=== PATIENT | female | born 1940 | race African-American/Black ===

== ENCOUNTER 2016-08-01 20:06 | Inpatient (IN) | payer MEDICARE ==
[~2016-08-01] VITALS: Ht 152.4 cm; Wt 67.0 kg
[2016-08-01 20:00] VITALS: BP 146/89
[~2016-08-01 20:06] MED LIST: ALLO100T PO; AMLO10TA80 PO; ATEN50TA PO; BUDE6HFA IH; DILT60TA3 PO; DULO30CA2 PO; LORA2TAB2 PO
[2016-08-01] MEDS: IPRATROPIUM BROMIDE (0.02%) 0.5MG/2.5ML NEB HHN SCH (20:30)
[2016-08-01] MEDS ORDERED: DIPHENHYDRAMINE 50MG CAPSULE PO PRN (20:45)
[2016-08-01] MEDS ORDERED: LORAZEPAM 1MG TABLET PO PRN (20:45)
[2016-08-01] MEDS ORDERED: GUAIFENESIN 200MG/10ML SUGAR FREE UDC PO PRN (20:45)
[2016-08-01] MEDS ORDERED: CLONIDINE 0.1MG TABLET PO PRN (20:45)
[2016-08-01] MEDS: AMIODARONE HCL 200 MG TABLET PO SCH (22:58)
[2016-08-01] MEDS: SUCRALFATE 1 G/10 ML UDC PO SCH (22:59)
[2016-08-01] MEDS: DILTIAZEM HCL 60MG TABLET PO SCH (22:59)
[2016-08-01 23:00] VITALS: BP 154/76
[2016-08-01] MEDS ORDERED: POTASSIUM PHOS,M-BASIC-D-BASIC 10 MMOL in DEXT 5% WATER 246.6667 ML IV NR (23:00)
[2016-08-01] MEDS ORDERED: MAGNESIUM 1 G PREMIX 100 ML IV NR (23:00)
[2016-08-01] MEDS: EPOETIN ALFA 10000UNITS/ML VIAL SUBCUT SCH (23:00)
[2016-08-02] MEDS: LORAZEPAM 0.5MG TABLET PO PRN ×2 (00:27→23:01)
[2016-08-02] MEDS: IPRATROPIUM BROMIDE (0.02%) 0.5MG/2.5ML NEB HHN SCH ×7 (00:38→23:14)
[2016-08-02 03:30] VITALS: BP 132/95
[2016-08-02] MEDS: PANTOPRAZOLE 40MG DR TABLET PO SCH (06:46)
[2016-08-02] MEDS: SUCRALFATE 1 G/10 ML UDC PO SCH ×4 (06:46→21:44)
[2016-08-02] MEDS: DILTIAZEM HCL 60MG TABLET PO SCH ×3 (06:47→21:42)
[2016-08-02 07:36] LABS: ALANINE AMINOTRANSFERASE 22 IU/L (13-61); ALBUMIN 2.6 g/dL (3.4-5.0); ANION GAP 16; CALCIUM 9.2 mg/dL (8.5-10.1); CARBON DIOXIDE 25 mEq/L (21-32); CHLORIDE 101 mEq/L (98-107); INDEX HEMOLYSI 1 (1-3); INDEX ICTERIC 1 (1-4); INDEX LIPEMIC 1 (1-3); UREA NITROGEN BLOOD 58 mg/dL (7-21)
[2016-08-02 07:39] LABS: eGFR 9 mL/min (>60)
[2016-08-02 08:00] VITALS: BP 154/90
[2016-08-02] MEDS: FOLIC ACID/VITAMIN B COMP W-C TABLET PO SCH (09:09)
[2016-08-02] MEDS: CHOLECALCIFEROL (D3) 1000 UNIT TABLET PO SCH (09:09)
[2016-08-02] MEDS: ALLOPURINOL 100 MG TABLET PO SCH (09:10)
[2016-08-02] MEDS: AMIODARONE HCL 200 MG TABLET PO SCH ×2 (09:10→21:43)
[2016-08-02] MEDS: FLUCONAZOLE 200MG TABLET PO SCH (09:10)
[2016-08-02] MEDS: GUAIFENESIN-DM 200MG-20MG/10ML UDC PO PRN ×2 (09:52→15:42)
[2016-08-02] MEDS: ENOXAPARIN 30MG/0.3ML SYR SUBCUT SCH (11:39)
[2016-08-02] MEDS: ACETAMINOPHEN 325MG TABLET PO PRN (15:42)
[2016-08-02 20:00] VITALS: BP 121/79
[2016-08-03] MEDS: ACETAMINOPHEN 325MG TABLET PO PRN (02:57)
[2016-08-03] MEDS: IPRATROPIUM BROMIDE (0.02%) 0.5MG/2.5ML NEB HHN SCH ×4 (04:06→20:11)
[2016-08-03] MEDS: PANTOPRAZOLE 40MG DR TABLET PO SCH (06:31)
[2016-08-03] MEDS: SUCRALFATE 1 G/10 ML UDC PO SCH ×4 (06:32→21:37)
[2016-08-03] MEDS: DILTIAZEM HCL 60MG TABLET PO SCH ×2 (06:32→14:15)
[2016-08-03 08:00] VITALS: BP 141/89
[2016-08-03] MEDS: CHOLECALCIFEROL (D3) 1000 UNIT TABLET PO SCH (09:35)
[2016-08-03] MEDS: FOLIC ACID/VITAMIN B COMP W-C TABLET PO SCH (09:35)
[2016-08-03] MEDS: FLUCONAZOLE 200MG TABLET PO SCH (09:35)
[2016-08-03] MEDS: AMIODARONE HCL 200 MG TABLET PO SCH ×2 (09:35→21:56)
[2016-08-03] MEDS: ALLOPURINOL 100 MG TABLET PO SCH (09:35)
[2016-08-03] MEDS: ENOXAPARIN 30MG/0.3ML SYR SUBCUT SCH (12:03)
[2016-08-03 13:50] VITALS: BP 116/81
[2016-08-03 20:00] VITALS: BP 144/87
[2016-08-03] MEDS: EPOETIN ALFA 10000UNITS/ML VIAL SUBCUT SCH (21:37)
[2016-08-03 23:40] VITALS: BP 145/89
[2016-08-04] MEDS ORDERED: DILTIAZEM HCL 60MG TABLET PO SCH
== END 2016-08-03 23:20 | disposition short-term general hospital (02) | DRG 291 ==
PROVIDERS: ADMIT Psychiatry & Neurology Neurology; ATTEND Specialist
PROC: 5A1D00Z (ICD-10-PCS; principal; 2016-08-02)
DX: I13.2 Hypertensive heart and chronic kidney disease with heart failure and with stage 5 chronic kidney disease, or end stage renal disease (principal); I50.31 Acute diastolic (congestive) heart failure; I71.00 Dissection of unspecified site of aorta; N18.6 End stage renal disease; A41.9 Sepsis, unspecified organism; E44.0 Moderate protein-calorie malnutrition; I48.92 Unspecified atrial flutter; I82.C19 Acute embolism and thrombosis of unspecified internal jugular vein; K92.2 Gastrointestinal hemorrhage, unspecified; N17.9 Acute kidney failure, unspecified; N39.0 Urinary tract infection, site not specified; B49 Unspecified mycosis; D63.8 Anemia in other chronic diseases classified elsewhere; D69.6 Thrombocytopenia, unspecified; E87.6 Hypokalemia; G89.29 Other chronic pain; I48.91 Unspecified atrial fibrillation; M51.36 Other intervertebral disc degeneration, lumbar region; R62.7 Adult failure to thrive; M19.90 Unspecified osteoarthritis, unspecified site; I73.9 Peripheral vascular disease, unspecified; K26.9 Duodenal ulcer, unspecified as acute or chronic, without hemorrhage or perforation; K25.9 Gastric ulcer, unspecified as acute or chronic, without hemorrhage or perforation; R26.81 Unsteadiness on feet; E83.39 Other disorders of phosphorus metabolism; Z96.89 Presence of other specified functional implants; E83.42 Hypomagnesemia; J44.9 Chronic obstructive pulmonary disease, unspecified; K21.9 Gastro-esophageal reflux disease without esophagitis; M10.9 Gout, unspecified; Z68.28 Body mass index [BMI] 28.0-28.9, adult; Z83.3 Family history of diabetes mellitus; Z86.19 Personal history of other infectious and parasitic diseases; Z87.11 Personal history of peptic ulcer disease; Z87.891 Personal history of nicotine dependence; Z99.2 Dependence on renal dialysis; Z90.49 Acquired absence of other specified parts of digestive tract; Z80.8 Family history of malignant neoplasm of other organs or systems
CPT/HCPCS: 36415; 80053; 93005; 93970; 94640; 97112; 97162; 97167; 97530; 97535; C1893; J0885; J1650; J3475; J3490; J7050; J7060